=== PATIENT | female | born 1945 | race Caucasian/White ===

== ENCOUNTER 2016-12-16 08:07 | Emergency (ER) | payer MEDICARE ==
--- NOTE | 2016-12-16 08:53 | Emergency Department Record ---
History of Present Illness - General Chief Complaint: Dizziness Stated Complaint: DIZZINESS Time Seen by Provider: 12/16/16 08:30 Source: Patient Mode of Arrival: Wheelchair Limitations: No limitations - History of Present Illness Initial Comments: 71 yo female presents to ED with a CC of vertigo that began around 5:15 this am. Patient reports that her symptoms began 45 minutes after awakening this morning, sudden onset. Patient reports feeling "off balance" and that she may pass out. Patient denies previous history of symptoms. Patient denies chest pain or palpitations, denies fevers, chills, or recent illness. MD Complaint: Dizziness Onset/Timin -: Hour(s) Timing: Sudden onset Description: Difficulty walking History of Same: Yes History of Trauma: No Severity: Moderate Improves With: Nothing Worsens With: Nothing Associated Symptoms: Denies other symptoms - [place] Coma Scale Eye Response: (4) Open spontaneously Motor Response: (6) Obeys commands Verbal Response: (5) Oriented [place] Total: 15 - Symptoms of Stroke Onset of Symptoms Date: 12/16/16 Onset of Symptoms Time: 06:00 Symptom Onset Unknown: No Symptoms of stroke: Unsteady When Walking, Vertigo - Related Data Home Medications Medication Instructions Recorded Confirmed Last Taken Aspirin [Aspir-Low] 81 mg PO DAILY 12/16/16 12/16/16 12/16/16 Atorvastatin Calcium 80 mg PO DAILY 12/16/16 12/16/16 12/16/16 Cholecalciferol (Vitamin D3) 4,000 unit PO DAILY 12/16/16 12/16/16 12/16/16 [Vitamin D3] Isosorbide Mononitrate [Imdur] 30 mg PO DAILY 12/16/16 12/16/16 12/15/16 Nitroglycerin 0.4MG [Nitrostat 1 tab PO ASDIR 12/16/16 12/16/16 Unknown 0.4MG] Triamterene/Hydrochlorothiazid 1 tab PO DAILY 12/16/16 12/16/16 12/16/16 [Triamterene-Hctz 37.5-25 mg Tb] Allergies Allergy/AdvReac Type Severity Reaction Status Date / Time No Known Drug Allergies Allergy Verified 12/16/16 08:29 Travel Screening - Travel/Exposure Within Last 30 Days Have you traveled within the last 30 days?: No Review of Systems Constitutional: Denies: Chills, Fever, Malaise, Night sweats Eyes: Denies: Eye discharge, Eye pain ENT: Denies: Congestion, Ear pain, Epistaxis Respiratory: Denies: Cough, Dyspnea Cardiovascular: Denies: Chest pain, Dyspnea on exertion Endocrine: Denies: Fatigue, Heat or cold intolerance Gastrointestinal: Denies: Abdominal pain, Nausea, Vomiting Genitourinary: Denies: Dysuria, Frequency Musculoskeletal: Denies: Arthralgia, Back pain, Gout, Joint swelling Skin: Denies: Bruising, Change in color Neurological: Reports: Abnormal gait, Vertigo. Denies: Confusion, Headache, Numbness, Seizure, Weakness Psychiatric: Denies: Anxiety Hematological/Lymphatic: Denies: Anemia, Blood Clots Past Medical History - SOCIAL HISTORY Smoking Status: Never smoker Alcohol Use: None Drug Use: None - RESPIRATORY Hx Respiratory Disorders: No - CARDIOVASCULAR Hx Cardio Disorders: Yes Hx Chest Pain: Yes Hx Heart Attack: Yes Hx Hypertension: Yes Comment:: high cholesterol - NEURO Hx Neuro Disorders: No - GI Hx GI Disorders: No - Hx Genitourinary Disorders: No - ENDOCRINE Hx Endocrine Disorders: Yes Hx Diabetes: Yes - MUSCULOSKELETAL Hx Musculoskeletal Disorders: No - PSYCH Hx Psych Problems: No - HEMATOLOGY/ONCOLOGY Hx Hematology/Oncology Disorders: No Family Medical History Any Significant Family History?: Yes Hx Cancer: Mother Physical Exam - General General Appearance: Alert, Oriented x3, Cooperative, No acute distress Limitations: No limitations - Head Head exam: Atraumatic, Normocephalic, Normal inspection Head exam detail: negative: Abrasion, Contusion, Avlia's sign, General tenderness, Hematoma, Laceration - Eye Eye exam: Normal appearance. negative: Conjunctival injection, Periorbital swelling, Periorbital tenderness, Scleral icterus - ENT Ear exam: negative: Auricular hematoma, Auricular trauma Nasal Exam: negative: Active bleeding, Discharge, Dried blood, Foreign body Mouth exam: negative: Drooling, Laceration, Muffled voice, Tongue elevation - Neck Neck exam: Normal inspection. negative: Meningismus, Tenderness - Respiratory Respiratory exam: Normal lung sounds bilaterally. negative: Rales, Respiratory distress, Rhonchi, Stridor - Cardiovascular Cardiovascular Exam: Regular rate, Normal rhythm, Normal heart sounds - GI/Abdominal GI/Abdominal exam: Soft. negative: Rebound, Rigid, Tenderness - Rectal Rectal exam: Deferred - exam: Deferred - Extremities Extremities exam: Normal inspection. negative: Calf tenderness, Pedal edema, Tenderness - Back Back exam: Denies: CVA tenderness (R), CVA tenderness (L) - Neurological Neurological exam: Alert, Oriented X3, Other (Patient has no focal weakness on examination, EOMI, no slurred speech or dysarthria, heavy cleaner strenght and lower extremity dorsiflexion/planta flexion are 5/5 and symmetric, rapid alternating movments and Romberg are normal as well.) - Psychiatric Psychiatric exam: Normal affect, Normal mood - Skin Skin exam: Normal color. negative: Abrasion Type of lesion: negative: abrasion Course Vital Signs 12/16/16 08:20 Temperature 97.9 F Pulse Rate 80 Respiratory 18 Rate Blood Pressure 157/73 Pulse Ox 99 - Reevaluation(s) Reevaluation #1: 12/16/16 09:13 EKG: NSR 70 Normal axis, normal intervals Nonspecific ST-T wave changes V4-V6 Reevaluation #2: 12/16/16 10:15 Labs reviewed and are grossly unremarkable for an acute process. Reevaluation #3: 12/16/16 10:54 CT Brain: Minimal to moderate small vessel ischemia, opacification of the maxillary sinuses. Patient reassessed following antivert, attempted ambulation with moderate difficulty maintaining balance. Discussed transfer for MRI, patient would like to be transferred to [facility] for further evaluation. Medical Decision Making - Lab Data Result diagrams: 12/16/16 09:19 12/16/16 09:19 Disposition Disposition: Transfer Clinical Impression: Vertigo [facility] for possible central vertigo Accepting Physician: Lilibeth Time Discussed w/Accepting Physician: 10:56 Condition: (2) Stable Forms: Patient Portal Access Time of Disposition: 11:01
[2016-12-16] MEDS: MECLIZINE 25 MG TABLET PO ONE (09:19)
[2016-12-16 09:23] LABS: BASO % 0.4 % (0-6); EOS % 0.8 % (0-6); GRAN % 70.1 % (47-80); HEMATOCRIT 38.1 % (35.0-47.0); HEMOGLOBIN 12.9 gm/dl (11.6-16.0); LYMPH % 21.6 % (16-45); MEAN CELL VOLUME 90.9 fl (81-97); MEAN CORPUSCULAR HEMOGLOBIN 30.8 pg (27-33); MEAN CORPUSCULAR HGB CONC 33.9 g/dl (32-36); MEAN PLATELET VOLUME 10.5 fl (7.4-10.4); MONO % 7.1 % (0-9); PLATELET COUNT 262 K/uL (130-400); RED BLOOD COUNT 4.19 M/uL (3.80-5.40); RED CELL DISTRIBUTION WIDTH 13.8 % (11.5-14.5)
[2016-12-16 09:40] LABS: ALB/GLOB RATIO 1.5 (1.1-1.8); ALBUMIN 4.4 gm/dL (3.5-5.0); ALKALINE PHOSPHATASE 89 U/L (38-126); ALT/SGPT 45 U/L (9-52); ANION GAP 7.6 (7-16); AST/SGOT 39 U/L (14-36); BILIRUBIN,TOTAL 0.65 mg/dL (0.2-1.3); BLOOD UREA NITROGEN 15 mg/dL (7-17); CARBON DIOXIDE 30.4 mmol/L (22-30); CREATININE 0.8 mg/dL (0.52-1.04); EST GLOMERULAR FILTRATION RATE > 60 ml/min; GLUCOSE,RANDOM 126 mg/dL (70-110); TOTAL PROTEIN 7.3 gm/dL (6.3-8.2)
--- NOTE | 2016-12-18 12:16 | CT SCAN REPORT ---
EXAM: HEAD CT WITHOUT CONTRAST HISTORY: ACUTE VERTIGO. LEG WEAKNESS. TECHNIQUE: Contiguous axial images from the cerebral convexities to the foramen magnum were obtained without contrast. Comparison: None. Hand dominance: Right. FINDINGS: Mild generalized atrophy of the brain. No acute intracranial hemorrhage, mass effect, or midline shift. Mild to moderate decreased attenuation in the subcortical and periventricular white matter of the cerebral hemispheres. No CT evidence of large acute territorial infarct. The ventricles , basal cisterns, and sulci are within normal limits. The osseous structures are unremarkable. Hypoplastic maxillary sinuses with diffuse opacification. IMPRESSION: 1. NO ACUTE INTRACRANIAL PROCESS. 2. MILD TO MODERATE CHRONIC SMALL VESSEL ISCHEMIC CHANGE. 3. OPACIFIED HYPOPLASTIC MAXILLARY SINUSES WHICH MAY REFLECT CHRONIC SINUSITIS. JOB NUMBER: [id number] [facility]
== END 2016-12-16 11:39 | disposition short-term general hospital (02) ==
LOC: ER 08:07
DX: R42 Dizziness and giddiness (principal); R26.2 Difficulty in walking, not elsewhere classified; I10 Essential (primary) hypertension; I25.2 Old myocardial infarction
CPT/HCPCS: 70450; 80053; 85025; 93005; 93010; 99285